=== PATIENT | female | born 2000 | race Hispanic/Latino ===

== ENCOUNTER 2023-04-30 08:53 | Emergency (ER) | payer BC, OTHER ==
[~2023-04-30] VITALS: Ht 154.9 cm; Wt 72.6 kg
[2023-04-30 08:58] VITALS: BP 134/82; PULSE 95; RESP 16; O2SAT 100
[2023-04-30 09:18] LABS: RAPID GROUP A STREP negative (NEGATIVE)
[2023-04-30 09:28] LABS: INFLUENZA TYPE A Negative For Type A (NEGATIVE); INFLUENZA TYPE B Negative For Type B (NEGATIVE)
[2023-04-30 09:32] LABS: SARS-CoV-2, RNA, NAAT NEGATIVE SARS CoV-2 (NEGATIVE)
[2023-04-30 10:12] LABS: APPEARANCE,URINE CLEAR (CLEAR); BILIRUBIN,URINE NEGATIVE (NEGATIVE); COLOR,URINE LIGHT-YELLOW (YELLOW); GLUCOSE, URINE (UA) NEGATIVE (NEGATIVE); KETONES,URINE NEGATIVE (NEGATIVE); LEUKOCYTE ESTERASE ,URINE NEGATIVE Leu/uL (NEGATIVE); NITRATE,URINE NEGATIVE (NEGATIVE); OCCULT BLOOD,URINE NEGATIVE (NEGATIVE); PROTEIN,URINE NEGATIVE (NEGATIVE); UROBILINOGEN,URINE 0.2 mg/dL (0.2-1.0)
[2023-04-30 10:13] LABS: ADD UA MICROSCOPIC NO
[2023-04-30 10:18] LABS: HCG,QUALITATIVE URINE NEGATIVE (NEGATIVE)
[2023-04-30] MEDS ORDERED: FAMO-136 PO (10:48)
[2023-04-30] MEDS ORDERED: ONDA4TAB10 PO (10:48)
== END 2023-04-30 10:54 | disposition home or self-care (01) ==
LOC: EDH 08:53
DX: J06.9 Acute upper respiratory infection, unspecified (principal); R10.13 Epigastric pain; J45.909 Unspecified asthma, uncomplicated; Z20.822 Contact with and (suspected) exposure to COVID-19
CPT/HCPCS: 99283; 87635; 87880; 87804 ×2; 81003; 81025; C9803

== ENCOUNTER 2024-12-23 13:21 | Emergency (ER) | payer SELFPAY ==
[~2024-12-23] VITALS: Ht 154.9 cm; Wt 59.0 kg
[~2024-12-23 13:21] MED LIST: FAMO-136 PO; ONDA-243 PO
--- NOTE | 2024-12-23 16:32 | ERN ---
General Chief Complaint: Vaginal Problems/Bleeding Stated Complaint: VAGINAL ABSCESS Time Seen by MD: 14:28 Time Seen by Midlevel: 14:28 Source: patient History of Present Illness Initial Comments The patient is a 24-year-old female with no significant past medical history presenting to the emergency department with a left-sided vaginal abscess that started three days ago. Denies any fever, chills, or any other symptoms at this time. Allergies: Coded Allergies: No Known Drug Allergies (Unverified Allergy, Unknown, 07/25/19) Home Meds Active Scripts Ondansetron (Ondansetron Odt) 4 Mg Tab.rapdis, 4 MG PO TIDP PRN for NAUSEA, #30 TAB 0 Refills Prov:URBAN VILLATORO MD 04/30/23 Famotidine (Pepcid) 20 Mg Tablet, 20 MG PO DAILY, #30 TAB 0 Refills Prov:URBAN VILLATORO MD 04/30/23 Past Medical History Past Medical History: Asthma Past Surgical History: None ROS Dictation CONSTITUTIONAL: Negative except for HPI HEAD/FACE: Negative except for HPI EENT: Negative except for HPI RESPIRATORY: Negative except for HPI GASTROINTESTINAL/ABDOMINAL: Negative except for HPI GENITOURINARY: Negative except for HPI MUSCULOSKELETAL: Negative except for HPI INTEGUMENTARY: Negative except for HPI NEUROLOGICAL/PSYCH: Negative except for HPI HEMATOLOGIC/LYMPHATIC: Negative except for HPI All Systems Negative, Except as noted above. 13 point review of systems assessed and all negative except for above. Physical Exam Physical Exam Dictation Vital Signs reviewed General Appearance: Alert, oriented x 3, no acute distress, well developed, nourished. Head and Face: non-traumatic. Eyes: PERRL, pink conjunctivas, eyelid no trauma, anterior chamber with arcus senilis. Ears: Pinnas intact and no signs of trauma or erythema ear canals clear and no discharge TM no erythema Nose: No discharge, no bleeding. Oropharynx: Mouth normal, tongue pink, pharynx clear,no erythema, tonsils no exudates, no abscesses noted, mucous membrane moist Neck: Supple, non-tender, no thyromegaly, no masses, no JVD, no bruits Breast:Deferred Chest:No tenderness, no crepitus, no paradoxical movement, no retractions Lungs:Clear, well-ventilated, symmetric, no rales, no wheezing, no rhonchi, no stridor, good breath sounds bilaterally Heart: Regular rate, regular rhythm, no murmur, no gallops Vascular: no peripheral edema, Abdomen: Soft, positive bowel sounds, nondistended, no guarding, nontender, no rebound, no masses no hepatomegaly, no splenomegaly, no Bragg's sign, no hernias. Rectal: Deferred Genital: External vaginal exam was performed with RN at bedside, there is a 2 x 2 cm non fluctuant area of erythema and swelling to the 2:00 a.m. location of the left vaginal labia Neurological: Normal speech, motor function intact, sensory function intact Musculoskeletal: Neck nontender, full range of motion, back nontender, full range of motion, Extremities: nontender, full range of motion Skin: Color pink, dry, no turgor, no rash, no lacerations, no abrasions, no contusions. Lymphatic: Deferred MDM MDM: Differential diagnosis: Bartholin gland cyst, abscess, cellulitis There are no social concerns with this patient. Prescription drug management Prescriptions will include: Augmentin Medical management and examination interpretation discussions were had by me with other qualified healthcare professionals as indicated for the patient's care. ED Course Orders Procedure Category Date Status Time Ketorolac PHA 12/23/24 Logged Tromethamine 30mg/Ml 16:30 Ceftriaxone 1g Vial PHA 12/23/24 Logged (Rocephine 1g Inj) 16:30 Current Medications Medications (Trade) Dose Ordered Sig/Charanjit Route PRN Reason Start Time Stop Time Status Last Admin Dose Admin Ceftriaxone Sodium (ROCEphine 1G INJ) 1 gm ONCE ONCE IM 12/23/24 16:30 12/23/24 16:31 UNV Ketorolac Tromethamine (toRADol) 30 mg ONCE ONCE IM 12/23/24 16:30 12/23/24 16:31 UNV Vital Signs Date Time Temp Pulse Resp B/P (MAP) Pulse Ox O2 Delivery O2 Flow Rate FiO2 12/23/24 14:34 97 18 135/95 97 Room Air* 0 21 12/23/24 13:23 97.9 97 18 139/95 99 Room Air 0 DX & DISP Disposition: Discharge Departure Impression: Primary Impression: Bartholin gland cyst Condition: Stable Referrals: MEENU PENA (PCP) TRIXIE CASTANEDA MD, JAROD N MD Time of Disposition: 16:31 I have reviewed the case, and I agree with, Diagnosis and Plan I performed the substantive portion of the visit. I have reviewed and personally made and approve the management plan that is documented in the note by myself or the NIRAJ. I acknowledge for responsibility for the patient's management plan. DASIA NIELSEN Dec 23, 2024 16:32
[2024-12-23 16:52] VITALS: BP 127/88; PULSE 88; RESP 18; TEMP 97.9; O2SAT 99
[2024-12-23] MEDS: ketOROlac 30MG VIAL (30MG/ML) IM SCH (17:13)
[2024-12-23] MEDS: cefTRIAXone 1G VIAL IM SCH (17:13)
[2024-12-23] MEDS ORDERED: AMOX1TAB16 PO (17:14)
== END 2024-12-23 17:30 | disposition home or self-care (01) ==
LOC: EDH 13:21
DX: N75.0 Cyst of Bartholin's gland (principal); J45.909 Unspecified asthma, uncomplicated
CPT/HCPCS: 99284; 96372 ×2; J1885; J0696